=== PATIENT | female | born 1955 | race Caucasian/White ===

== ENCOUNTER 2023-08-30 00:23 | Emergency (ER) | payer OTHER, SELFPAY ==
[2023-08-30 00:27] VITALS: BP 167/84
--- NOTE | 2023-08-30 00:46 | ED.GENMED ---
History of Present Illness
<RONIT Lazar - Last Filed: 08/30/23 05:30>
General
Chief Complaint: Musculo-Skeletal Complaint
Source: patient
Exam Limitations: none
Time Seen by Provider: 08/30/23 00:31
Nursing documentation reviewed up to this point in time: agreed with
Travel History
Have you had any contact with someone who has COVID-19?: No
Do you have any symptoms of coronavirus? Fever > 100 degrees, chills, cough, shortness of breath, sore throat, loss of taste or smell, muscle aches, or headache?: No
History of Present Illness
History of Present Illness:
patient is a 68 y/o female presenting with left shoulder pain x 1 day. Patient states she was playing with he grandchildren when she 'felt something happen to her shoulder.' Patient states the pain is a constant ache and pressure like pain that
radiates to her mid humeral shaft. patient admits to taking an advil at 12pm. Patient denies weakness, tingling, ROM, N/V/D/C, fever, chills, LORA, CP, SOB. patient states she has a history of chronic neck pain but denies similar presenting symptoms.
Past History
<RONIT Lazar - Last Filed: 08/30/23 05:30>
Past History
ED Past Medical History: HTN, Hypercholesterolemia and Other (MVP)
ED Past Surgical History:
Social History
Tobacco: Non-smoker
Alcohol: Occasional
Personal:
Living: with family
Employment: Employed
Review of Systems
<RONIT Lazar - Last Filed: 08/30/23 05:30>
Review of Systems
All Other Systems: Not applicable
Constitutional: Reports no symptoms
EENT: Reports no symptoms
Respiratory: Reports no symptoms
Cardiac: Reports no symptoms
ABD/GI: Reports no symptoms
: Reports no symptoms
Musculoskeletal: Reports joint pain (left shoulder), muscle pain (left shoulder) and neck pain
Skin: Reports no symptoms
Neurological: Reports no symptoms
Endocrine: Reports no symptoms
Hematologic/Lymphatic: Reports no symptoms
Psychiatric: Reports no symptoms
Phy Exam
<RONIT Lazar - Last Filed: 08/30/23 05:30>
General Physical Exam
General Presentation: well appearing and no apparent distress
General Skin: warm and dry
General Habitus: normal
General Mental: alert
General Hydration: appears well hydrated
ENT Exam
ENT Exam: EOMI, pharynx normal, neck supple and normocephalic
Eye Exam
Eye Exam: PERRL, cornea clear and conjunctiva normal
Cardiovascular Exam
Cardiovascular Exam: regular rate/rhythm, no edema, no murmur and normal peripheral pulses
Pulmonary Exam
Pulmonary Exam: lungs clear, no respiratory distress, no rales, no crackles, no rhonchi, no stridor, no wheezing and no cough
Gastrointestinal Exam
Gastrointestinal Exam: normal bowel sounds, non tender, soft, no organomegaly, no pulsatile mass and non distended
Neurological Exam
Neurological Exam: alert, oriented x3, no motor deficits and speech normal
Musculoskeletal Exam
Musculoskeletal Exam: other (Left shoulder pain with decreased ROM due to pain, no swelling, erythema or lesions; no tenderness to palpation; )
Skin Exam
Skin Exam: normal color, warm/dry, no rash and no petechia
Psychiatric Exam
Psychiatric Exam: normal mood/affect
Course
<RONIT Lazar - Last Filed: 08/30/23 05:30>
Orders/Labs/Results
Orders:
Orders
08/30/23 00:24
Electrocardiogram (*1) Urgent
Reason for Study: Other
Other Reason for Exam: MUSCULOSKELETAL
08/30/23 00:52
CR Shoulder - Left Min 2 View* Urgent
Comment:
Reason For Exam: L shoulder pain
08/30/23 02:04
Sling Left-Treatment ONCE
08/30/23 02:22
Ibuprofen [Motrin] 600 mg PO NOW STA
Vital Signs
Initial and Last Documented VS:
Initial Vital Signs
Temp Pulse Resp BP Pulse Ox
98.3 F 82 16 167/84 100
08/30/23 00:27 08/30/23 00:27 08/30/23 00:27 08/30/23 00:27 08/30/23 00:27
Last Documented Vital Signs
Temp Pulse Resp BP Pulse Ox
98.3 F 68 16 111/56 98
08/30/23 00:27 08/30/23 02:16 08/30/23 02:16 08/30/23 02:16 08/30/23 02:16
<Ras Montgomery, DO - Last Filed: 08/30/23 02:05>
Orders/Labs/Results
Orders:
Orders
08/30/23 00:24
Electrocardiogram (*1) Urgent
Reason for Study: Other
Other Reason for Exam: MUSCULOSKELETAL
08/30/23 00:52
CR Shoulder - Left Min 2 View* Urgent
Comment:
Reason For Exam: L shoulder pain
08/30/23 02:04
Sling Left-Treatment ONCE
08/30/23 02:22
Ibuprofen [Motrin] 600 mg PO NOW STA
Vital Signs
Initial and Last Documented VS:
Initial Vital Signs
Temp Pulse Resp BP Pulse Ox
98.3 F 82 16 167/84 100
08/30/23 00:27 08/30/23 00:27 08/30/23 00:27 08/30/23 00:27 08/30/23 00:27
Last Documented Vital Signs
Temp Pulse Resp BP Pulse Ox
98.3 F 68 16 111/56 98
08/30/23 00:27 08/30/23 02:16 08/30/23 02:16 08/30/23 02:16 08/30/23 02:16
<RONIT Lazar - Last Filed: 08/30/23 05:30>
MDM/Problems Addressed
Differential Diagnosis Includes:
Rotator cuff injury
AC joint dislocation
Glenohumeral joint dislocation
fracture
MDM/Problems Addressed:
left shoulder pain
<RONIT Lazar - Last Filed: 08/30/23 05:30>
*Critical Care Note
Total Time (30-74mins, 75-104mins- exclusive of procedures): Not Applicable
ED Attending Note
<RONIT Lazar - Last Filed: 08/30/23 05:30>
-
Portions of this chart may have been created with voice recognition software.� Occasional wrong word or��sound alike� substitutions may have occurred due to the inherent limitations of voice recognition software.
<Ras Montgomery DO - Last Filed: 08/30/23 02:05>
ED Attending Note
Patient seen and examined by attending physician: Yes
I performed the substantive portion of visit, reviewed & personally made and approve the management plan that is documented in note by myself or KIRILL.: Yes
ED Attending Note:
Pleasant 68-year-old female presents with left shoulder pain. She was playing with her grandchildren and states that she felt something go 'wrong 'in her shoulder. Patient states that the pain was constant but relieved with ibuprofen. She denies
any other injury. She does have some limited range of motion in the left shoulder. Patient was seen in conjunction with the PA student. I have reviewed and agree with the history and treatment plan presented. On my independent physical exam,
patient is awake, alert, and oriented x3, minimal acute distress. Left shoulder has limited range of motion. She is able to Abduct and adduct. Good distal pulses. She does have limited range of motion when moving her arm cephalad. She does have
left shoulder joint pain.
Plan is x-ray and shoulder sling. She has seen Dr. Short in the past. She will call the office tomorrow.
Discharge Plan
Departure
Patient Disposition: Home (Routine Discharge)
Date of Disposition: 08/30/23
Time of Disposition: 02:04
Patient with high blood pressure during this ER visit?: Yes
Condition: Good
Discharge Problem:
Shoulder arthralgia
Instructions: How to Use a Shoulder Sling, Shoulder Pain ED, BLOOD PRESSURE
Prescriptions:
No Action
Bystolic:
1 tab PO DAILY
Patient Comments:
pt does not know mg
Losartan
1 tab PO DAILY
Patient Comments:
pt does not know mg
Referrals:
Kenneth Short MD [Active] -
Activity Restrictions/Additional Instructions:
It was a pleasure meeting you and taking part in your care. We hope for your continued healing and wellness.
Please read discharge instructions in their entirety. However, they are for general education and may not describe your exact diagnosis at discharge. Information on your ER visit and medical conditions were discussed with you along with appropriate
follow up information...
If indicated, please take your medications as instructed and indicated on discharge paperwork.
Please schedule a follow up appointment as directed. Call to schedule an appointment
Please return to the emergency department with ANY change in, persisting, or worsening of symptoms. If any of your symptoms do not improve, or persist, or become more severe within 6-12 hours, please return to the emergency department for further
care.
Please return to the emergency department if you develop a headache, neck pain/stiffness, fever greater than 100.4F, chest pain, shortness of breath, persistent nausea, vomiting, slurred speech, difficulty walking, numbness/tingling, weakness, signs
of infection or any other symptoms that are worrisome to you.
If you have any questions or concerns please do not hesitate to call the Hospital at or E-mail me directly at [email or web address]
Interventions
Interventions:
*Risk Screen - Suicide Last Done: 08/30/23 00:30
*General Assessment Last Done: 08/30/23 00:30
*Neglect/Abuse Screening Last Done: 08/30/23 00:30
*ED COVID-19 Vaccine History Last Done: 08/30/23 00:30
*Nursing Disposition Last Done: 08/30/23 02:31
ED-Musculoskeletal Assessment Last Done: 08/30/23 00:35
Discharge Date and Time
Discharge Date/Time: 08/30/23 02:31
Print Language: MONGOLIAN
[2023-08-30 02:16] VITALS: BP 111/56
[2023-08-30] MEDS: MOTRIN 600 MG PO (02:25)
== END 2023-08-30 02:31 | disposition home or self-care (01) ==
LOC: EMR 00:23
PROVIDERS: EMERGENCY PHYSICIAN Student in an Organized Health Care Education/Training Program; FAMILY PHYSICIAN Internal Medicine
DX: M25.512 Pain in left shoulder (principal); I10 Essential (primary) hypertension; E78.00 Pure hypercholesterolemia, unspecified; I34.1 Nonrheumatic mitral (valve) prolapse; G89.29 Other chronic pain
CPT/HCPCS: 99283; 73030

== ENCOUNTER → 2023-09-30 22:00 | Outpatient (REF) | payer OTHER, SELFPAY | LOC: DHSLP 22:00 | PROVIDERS: ATTENDING PHYSICIAN Internal Medicine Critical Care Medicine; FAMILY PHYSICIAN Internal Medicine | DX: G47.33 Obstructive sleep apnea (adult) (pediatric) (principal) | CPT/HCPCS: 95800 ==

== ENCOUNTER → 2024-02-29 11:19 | Outpatient (REF) | payer OTHER, SELFPAY | LOC: DHSLP 11:19 | PROVIDERS: ATTENDING PHYSICIAN Internal Medicine Critical Care Medicine; FAMILY PHYSICIAN Internal Medicine | DX: G47.00 Insomnia, unspecified (principal); R06.83 Snoring | CPT/HCPCS: 95800 ==